=== PATIENT | female | born 1940 | race Caucasian/White ===

== ENCOUNTER → 2023-12-15 11:10 | Outpatient (REF) | payer OTHER, SELFPAY | LOC: HWWDC 11:10 | PROVIDERS: ATTENDING PHYSICIAN Student in an Organized Health Care Education/Training Program | DX: Z12.31 Encounter for screening mammogram for malignant neoplasm of breast (principal) | CPT/HCPCS: 77063; 77067 ==

== ENCOUNTER → 2025-02-01 10:42 | Outpatient (REF) | payer OTHER, SELFPAY | LOC: HWWDC 10:42 | PROVIDERS: ATTENDING PHYSICIAN Student in an Organized Health Care Education/Training Program | DX: Z12.31 Encounter for screening mammogram for malignant neoplasm of breast (principal) | CPT/HCPCS: 77063; 77067 ==

== ENCOUNTER → 2025-05-18 12:36 | Outpatient (REF) | payer OTHER, SELFPAY | LOC: WDC 12:36 | PROVIDERS: ATTENDING PHYSICIAN Student in an Organized Health Care Education/Training Program | DX: R92.2 Inconclusive mammogram (principal) | CPT/HCPCS: 76641 ==